=== PATIENT | male | born 1965 | race Caucasian/White ===

== ENCOUNTER → 2018-12-13 | Outpatient (CLI) | payer OTHER ==
--- NOTE | 2018-12-13 13:54 | PCVCIMAG ---
APPROVED REPORT Indications Stenosis Risk Factors Diabetes, Doppler Spectral Velocity Analysis PSV / EDVPSV / EDV ECA (R) 102 / 9 cm/sECA (L) 96 / 10 cm/s dICA (R) 51 / 22 cm/sdICA (L) 73 / 26 cm/s Que (R) 65 / 29 cm/smICA (L) 79 / 29 cm/s pICA (R) 66 / 22 cm/spICA (L) 65 / 22 cm/s Bulb (R) 64 / 19 cm/sBulb (L) 72 / 16 cm/s dCCA (R) 99 / 26 cm/sdCCA (L) 98 / 23 cm/s mCCA (R) 95 / 19 cm/smCCA (L) 106 / 22 cm/s Vert (R) 39 / 14 cm/sVert (L) 36 / 10 cm/s ICA/CCA 0.67ICA/CCA 0.81 Basic Measurements Blood Pressure: Pulses: Right Left RightLeft Brachial(Sitting) 110/04ybEm655/70mmHgTemporal Real Time B-Mode Imaging Vert. (R)AntegradeVert. (L)Antegrade Findings The right carotid bulb has minimal plaque. The right proximal internal carotid artery shows no significant stenosis. The right common carotid artery shows no significant stenosis. The right external carotid artery shows no significant stenosis. The left carotid bulb has minimal plaque. The left proximal internal carotid artery shows no significant stenosis. The left common carotid artery shows no significant stenosis. The left external carotid artery shows no significant stenosis. Conclusion 1. Minimal bilateral plaquing without significant stenosis. 2. Antegrade vertebral flow.
--- NOTE | 2018-12-13 16:20 | PCVCIMAG ---
APPROVED REPORT Study performed: 12/13/2018 13:32:51 EXAM: Comprehensive 2D, Doppler, and color-flow Echocardiogram Patient Location: Echo lab Status: routine BSA: 2.37 HR: 82 bpmBP: 106/70 mmHg Rhythm: NSR Other Information Study Quality: Adequate Risk Factors: Cardiac Risk Factors: HTN, Hyperlipidemia, DM Indications CAD Cardiomyopathy S/P stent LAD 2D Dimensions IVSd: 10.63 (7-11mm)LVOT Diam: 21.00 (18-24mm) LVDd: 46.64 mm PWd: 11.33 (7-11mm)Ascending Ao: 33.39 (22-36mm) LVDs: 36.47 (25-40mm) Left Atrium: 40.11 (27-40mm) Aortic Root: 30.85 mm LV Single Plane 4CH: 55.63 % LV Single Plane 2CH: 50.57 % Biplane EF: 55.9 % Volumes Left Atrial Volume (Systole) Single Plane 4CH: 43.96 mLSingle Plane 2CH: 47.89 mL LA ESV Index: 22.00 mL/m2 Aortic Valve AoV Peak Manolo.: 1.56 m/s AO Peak Gr.: 9.74 mmHgLVOT Max P.08 mmHg LVOT Max V: 1.01 m/s DENISHA Vmax: 2.19 cm2 Mitral Valve E/A Ratio: 1.1 MV Decel. Time: 241.31 ms MV E Max Manolo.: 0.82 m/s MV A Manolo.: 0.78 m/s IVRT: 69.20 ms TDI E/Lateral E': 10.25E/Medial E': 10.25 Medial E' Manolo.: 0.08 m/s Lateral E' Manolo.: 0.08 m/s Pulmonary Valve PV Peak Manolo.: 1.13 m/sPV Peak Gr.: 5.13 mmHg Pulmonary Vein P Vein S: 0.67 m/sP Vein A: 0.41 m/s P Vein D: 0.47 m/sP Vein A Dur.: 110.7 msec P Vein S/D Ratio: 1.43 Tricuspid Valve RAP Estimate: 7.00 mmHg Left Ventricle The left ventricle is normal size. There is normal LV segmental wall motion. Borderline concentric left ventricular hypertrophy. Left ventricular systolic function is normal. The left ventricular ejection fraction is within the normal range. LVEF is 50-55%. The left ventricular diastolic function is normal. Right Ventricle The right ventricle is normal size. The right ventricular systolic function is normal. Atria The left atrium size is normal. The right atrium size is normal. Aortic Valve The aortic valve is normal in structure. No aortic regurgitation is present. There is no aortic valvular stenosis. Mitral Valve The mitral valve is normal in structure. There is no mitral valve regurgitation noted. No evidence of mitral valve stenosis. Tricuspid Valve The tricuspid valve is normal in structure. There is no tricuspid valve regurgitation noted. Unable to assess PA pressure. Pulmonic Valve The pulmonary valve is normal in structure. There is no pulmonic valvular regurgitation. Great Vessels The aortic root is normal in size. IVC is normal in size and collapses >50% with inspiration. Pericardium There is no pericardial effusion. <Conclusion> Left ventricular systolic function is normal. There is normal LV segmental wall motion. LVEF 50-55%. The left ventricular diastolic function is normal. The aortic valve is normal in structure. No regurgitation or stenosis The mitral valve is normal in structure. No mitral valve regurgitation Pulmonary artery pressure could not be reliably ascertained There is no pericardial effusion.
== END | disposition home or self-care (01) ==
LOC: PCVCIMAG 13:07
PROVIDERS: ATTEND Internal Medicine
DX: I65.23 Occlusion and stenosis of bilateral carotid arteries (principal); E11.9 Type 2 diabetes mellitus without complications; I25.5 Ischemic cardiomyopathy; I51.7 Cardiomegaly
CPT/HCPCS: 93306; 93880